=== PATIENT | male | born 1955 | race Caucasian/White ===

== ENCOUNTER → 2018-05-04 09:12 | Outpatient (CLI) | payer OTHER, SELFPAY ==
--- NOTE | 2018-05-04 | DI.US.S_ITS ---
PROCEDURE: US ABDOMEN COMPLETE INDICATIONS: Elevated liver enzymes and positive Hep C TECHNIQUE: Real-time scanning was performed of the abdominal and retroperitoneal organs, with image documentation. COMPARISON: None. FINDINGS: Liver: Liver is normal in size and homogeneous in echotexture. Note is made of a small right hepatic lobe cyst measuring up to 2.2 cm, simple in character. Gallbladder: Normal. Biliary ducts: Intrahepatic bile ducts are non-dilated. Extrahepatic bile duct caliber measures 5.0 mm. Normal is 6-7 mm or less in diameter, or 10 mm or less post-cholecystectomy. Pancreas: Not seen due to bowel gas Spleen: Spleen is slightly above the upper limits of normal in craniocaudad size at 13.4 cm, and homogeneous in echotexture. Kidneys: Kidneys are normal in size and echotexture. Right kidney measures 9.9 cm long; left kidney measures 11.0 cm long. No hydronephrosis bilaterally or right sided nephrolithiasis. There is a set of 2 calculi involving the superior and inferior collecting system of the left kidney, measuring 9 mm above and 10 mm below No solid masses. Aorta: Visualized aorta is normal in caliber at less than 3 cm. Iliacs: Proximal common iliac arteries are normal in caliber at less than 2.5 cm. IVC: Intrahepatic inferior vena cava is patent. Miscellaneous: No free abdominal fluid. IMPRESSION: No hydronephrosis or right-sided nephrolithiasis but to left renal collecting system calculi are nonobstructive in measure up to 1 cm in dimension. No gallstones or biliary distention seen, a source of elevated liver function tests is not found. Dictated by: Del Duncan M.D. on 05/04/2018 at 12:22 Approved by: Del Duncan M.D. on 05/04/2018 at 12:25
== END ==
PROVIDERS: PCP Family Medicine; Visit Provider Family Medicine
DX: N20.0 Calculus of kidney (principal); R94.5 Abnormal results of liver function studies; B19.20 Unspecified viral hepatitis C without hepatic coma
CPT/HCPCS: 76700

== ENCOUNTER → 2023-02-09 08:00 | Outpatient (CLI) | payer OTHER, SELFPAY ==
--- NOTE | 2023-02-09 08:24 | DI.ECHO.S_ITS ---
:Name: EDUAR BLACK Study Date: 02/09/2023 Height: 72 in : :[facility] ReadingLocation: Weight: 235 lb : : Gender: Male BSA: 2.3 m2 : :: 1955 Age: 68 yrs BP: 129/104 mmHg: :Reason For Study: ATRAIL FIBRILLATION : :Ordering Physician: VINNY, : :KAROL Ly Performed By: Rita Anaya : :Referring: KAROL CASILLAS : + + Interpretation Summary The left ventricle is borderline dilated. Left ventricular systolic function is severely reduced. The ejection fraction is estimated to be 25-30%. There is no prior echocardiogram noted for this patient. Diastolic function could not be accurately assessed due to atrial fibrillation. The right ventricle is mildly dilated. The right ventricular systolic function is normal. The right ventricular systolic pressure is estimated to be at least 46 mmHg based on an estimated right atrial pressure of 8 mm Hg. The left atrium is severely dilated. The right atrium is severely dilated. There is moderate mitral regurgitation. There is mild tricuspid regurgitation. The aortic root is normal size. A-fib with mild RVR was present. Procedure: A two-dimensional transthoracic echocardiogram with color flow and Doppler was performed. The study quality was technically adequate. There is no prior echocardiogram noted for this patient. The patient was in atrial fibrillation with heart rates between 92-123 bpm during the exam. Left Ventricle: The left ventricle is borderline dilated. The estimated left ventricular end diastolic volume is 139 ml. Left ventricular systolic function is severely reduced. The ejection fraction is estimated to be 25-30%. Diastolic function could not be accurately assessed due to atrial fibrillation. Right Ventricle: The right ventricle is mildly dilated. The right ventricular systolic function is normal. Atria: The left atrium is severely dilated. The right atrium is severely dilated. There is no Doppler evidence for an interatrial shunt. Mitral Valve: The mitral valve leaflets appear mildly thickened, but open well. There is moderate mitral regurgitation. Aortic Valve: The aortic valve is not well visualized. The aortic valve opens well. There is no aortic valve stenosis. No aortic regurgitation is present. Tricuspid Valve: The tricuspid valve is not well visualized, but is grossly normal. There is mild tricuspid regurgitation. The right ventricular systolic pressure is estimated to be at least 46 mmHg based on an estimated right atrial pressure of 8 mm Hg. Pulmonic Valve: The pulmonic valve is not well seen, but is grossly normal. There is trace pulmonic regurgitation. Great Vessels: The aortic root is normal size. The ascending aorta is at the upper limits of normal in size. The IVC is dilated (diameter is greater than 2.1 cm) yet it collapses greater than 50% with a sniff. This suggests a right atrial pressure of 8 mm Hg. Pericardium/ Pleura There is no pericardial effusion. There is no pleural effusion. MMode/2D Measurements & Calculations LVIDd: 5.8 cm LVOT diam: 2.3 cm LVIDs: 5.3 cm Ao root diam: 3.6 cm FS: 8.9 % asc Aorta Diam: 3.9 cm EPSS: 2.0 cm Ao Arch Diam (Prox Trans): 3.2 cm IVSd: 0.99 cm LVPWd: 0.91 cm LV ellington. diameter/BSA (cm/m^2): 2.6 LV sys. diameter/BSA (cm/m^2): 2.3 LA A2 area: 28.7 cm2 RA long axis: 6.6 cm LA A4 area: 36.8 cm2 RA area: 30.4 cm2 LA length (vol): 7.5 cm RA vol: 118.8 ml LA vol: 120.3 ml RA : 52.1 ml/m2 LA vol index: 52.7 ml/m2 IVC diam: 2.1 cm RVD1 (basal): 4.4 cm RVD2 (mid): 3.0 cm TAPSE: 1.9 cm Doppler Measurements & Calculations Ao V2 max: 91.8 cm/sec LVOT Max Leon: 50.0 cm/sec Ao V2 mean: 71.1 cm/sec LV V1 max P.0 mmHg Ao max P.4 mmHg LV V1 VTI: 8.0 cm Ao mean P.2 mmHg IGNACIA(I,D): 2.4 cm2 Ao V2 VTI: 14.4 cm IGNACIA(V,D): 2.4 cm2 sev ratio: 0.56 IGNACIA indexed to BSA (cm^2/m^2): 1.1 MV E max leon: 90.4 cm/sec TR max leon: 307.0 cm/sec MV A max leon: 1.5 cm/sec TR max P.7 mmHg MV E/A: 59.5 PA V2 max: 80.4 cm/sec Med Peak E' Leon: 6.4 cm/sec PA V2 mean: 53.6 cm/sec E/E' med: 14.1 PA mean P.3 mmHg Lat Peak E' Leon: 11.2 cm/sec PA pr(Accel): 53.3 mmHg E/E' lat: 8.0 E/e' average: 11.1 MV dec time: 0.14 sec MR ERO: 0.19 cm2 MR PISA: 2.9 cm2 SV(LVOT): 34.8 ml MR flow rate: 101.4 cm3/sec MR PISA radius: 0.68 cm Reading Physician:09:54 AM
== END ==
PROVIDERS: PCP Family Medicine; Referring Provider Family Medicine; Visit Provider Family Medicine
DX: I08.1 Rheumatic disorders of both mitral and tricuspid valves (principal); I48.91 Unspecified atrial fibrillation
CPT/HCPCS: 93306

== ENCOUNTER → 2023-02-10 09:29 | Outpatient (CLI) | payer OTHER, SELFPAY ==
--- NOTE | 2023-02-12 16:32 | PM.PFT.1 ---
Pulmonary Function Test Referral & Results Date Patient Seen: 02/10/23 Results: The spirometry demonstrates an FVC of 3.65 L which is 80% of predicted. The FEV1 was measured at 3.11 L which is 92% of predicted. The FEV1/FVC ratio was 85 which is 115% of predicted. Following the administration of bronchodilator there was no appreciable change. Lung volumes show an SVC of 4.34 L which is 93% of predicted. The diffusing capacity was measured at 19.27 which is 59% of predicted. No hemoglobin value was provided, so no correction for potential anemia could be made, if appropriate. The maximum voluntary ventilation was normal Interpretation: This study demonstrates normal spirometry but moderate reduction diffusing capacity suggesting the presence of disease at the capillary alveolar level
== END ==
PROVIDERS: PCP Family Medicine; Referring Provider Family Medicine; Visit Provider Family Medicine
DX: R06.2 Wheezing (principal); Z87.891 Personal history of nicotine dependence; J98.8 Other specified respiratory disorders
CPT/HCPCS: 94060; 94726; 94729

== ENCOUNTER → 2023-05-28 12:56 | Outpatient (CLI) | payer OTHER, SELFPAY ==
--- NOTE | 2023-05-28 | DI.ECHO.S_ITS ---
[facility]---------+ [facility] +---------+ : : [address] [place] : : : : [id number] : : : : Phone: [phone]+ Echocardiogram Report + + :Name: EDUAR BLACK Study Date: 05/28/2023 Height: 71 in : :[facility] ReadingLocation: Weight: 235 lb : : Gender: Male BSA: 2.3 m2 : :: 1955 Age: 68 yrs BP: 155/96 mmHg: :Reason For Study: Chronic Systolic Heart Failure : :Ordering Physician: EDWARDO, : :MINESH Performed By: Gisele Becker : :Referring: MINESH JACKSON : + + Interpretation Summary 1) Normal left ventricular size with mildly reduced systolic function (EF 45- 50%). 2) Normal right ventricular size and function. 3) There is mild aortic stenosis (valve area 1.8cm2, mean gradient 4mmHg). 4) Compared to the Echo done 02/09/2023, LVEF has improved from 25-30% to 45- 50% on this study. Procedure: A two-dimensional transthoracic echocardiogram with color flow and Doppler was performed. The study quality was technically adequate. Comparison is made with the echocardiogram of 02/09/2023. The patient was in a bradycardic rhythm during the exam. Left Ventricle: The left ventricle is normal in size. The ejection fraction is estimated to be 45-50%. Diastolic parameters suggest a relaxation abnormality of the left ventricle, consistent with probable normal filling pressures. Right Ventricle: The right ventricle is normal size. The right ventricular systolic function is normal. Atria: The left atrial size is normal. Right atrial size is normal. There is no Doppler evidence for an interatrial shunt. Mitral Valve: The mitral valve is grossly normal. There is no mitral valve stenosis. There is trace mitral regurgitation. Aortic Valve: The aortic valve is trileaflet. The aortic valve opens well. There is mild aortic valve sclerosis. There is mild aortic stenosis. No aortic regurgitation is present. Tricuspid Valve: The tricuspid valve is normal. There is no tricuspid stenosis. There is trace tricuspid regurgitation. The right ventricular systolic pressure is estimated to be at least 18 mmHg based on an estimated right atrial pressure of 3 mm Hg. Pulmonic Valve: The pulmonic valve is not well visualized. There is no pulmonic valvular stenosis. There is no pulmonic valvular regurgitation. Great Vessels: The aortic root is normal size. The ascending aorta is normal in size. The pulmonary artery is normal size. The IVC is of normal diameter and collapses greater than 50% with a sniff. This suggests a low right atrial pressure of 3 mm Hg. Pericardium/ Pleura There is no pericardial effusion. There is no pleural effusion. MMode/2D Measurements & Calculations LVIDd: 5.4 cm LVOT diam: 2.2 cm LVIDs: 4.6 cm Ao root diam: 3.3 cm FS: 14.8 % asc Aorta Diam: 3.6 cm IVSd: 0.80 cm LVPWd: 1.0 cm LV ellingtno. diameter/BSA (cm/m^2): 2.4 LV sys. diameter/BSA (cm/m^2): 2.0 LA A4 area: 20.7 cm2 RA long axis: 5.7 cm RA area: 16.8 cm2 RA vol: 42.1 ml RA : 18.7 ml/m2 RVD1 (basal): 4.3 cm LVLs ap4: 7.1 cm LVLd ap2: 8.0 cm TAPSE_phl: 2.8 cm LVLs ap2: 7.0 cm Doppler Measurements & Calculations Ao V2 max: 141.0 cm/sec LVOT Max Leon: 65.8 cm/sec Ao V2 mean: 95.0 cm/sec LV V1 max P.7 mmHg Ao max P.0 mmHg LV V1 VTI: 16.4 cm Ao mean P.0 mmHg IGNACIA(I,D): 1.8 cm2 Ao V2 VTI: 32.5 cm IGNACIA(V,D): 1.7 cm2 sev ratio: 0.50 IGNACIA indexed to BSA (cm^2/m^2): 0.82 MV E max leon: 52.4 cm/sec TR max leon: 195.0 cm/sec MV A max leon: 74.7 cm/sec TR max P.2 mmHg MV E/A: 0.70 PA V2 max: 91.0 cm/sec Med Peak E' Leon: 4.4 cm/sec PA V2 mean: 62.7 cm/sec E/E' med: 12.0 PA mean P.0 mmHg Lat Peak E' Leon: 9.4 cm/sec PA pr(Accel): 21.9 mmHg E/E' lat: 5.6 E/e' average: 8.8 MV dec time: 0.42 sec SV(LVOT): 59.9 ml AV VR_phl: 0.47 IGNACIA(VTI)/BSA_phl: 0.63 MV P1/2t-pr_phl: 124.0 msec Reading Physician:05:19 PM
== END ==
PROVIDERS: PCP Family Medicine; Referring Provider Internal Medicine Cardiovascular Disease; Visit Provider Internal Medicine Cardiovascular Disease
DX: I35.8 Other nonrheumatic aortic valve disorders (principal); I35.0 Nonrheumatic aortic (valve) stenosis; I50.22 Chronic systolic (congestive) heart failure
CPT/HCPCS: 93306

== ENCOUNTER → 2025-09-14 12:08 | Outpatient (CLI) | payer OTHER, SELFPAY ==
--- NOTE | 2025-09-14 12:09 | DI.NM.S_ITS ---
PROCEDURE: NM MARYBEL PERF SPECT R&S PHARM Rest and pharmacological stress myocardial perfusion SPECT with gated imaging and ejection fraction RADIOPHARMACEUTICAL: 25.9 mCi Tc-99m tetrafosmin IV at rest and 26.0 mCi Tc-99m tetrafosmin IV at peak effect of pharmacological stress. [id number] was performed. INDICATIONS: Chronic systolic heart failure TECHNIQUE: Radiopharmaceutical was injected at peak stress test, and also at rest. SPECT images were obtained. SPECT myocardial perfusion images were displayed in short axis, horizontal long axis, and vertical long axis views. Gated images were reviewed using Daz 3d software. COMPARISON: None. CARDIAC STRESS: A pharmacologic stress test was performed under the supervision of an attending staff, using an infusion of 0.4 mg regadenoson IV. Hemodynamic data: There is normal blood pressure and heart rate response to pharmacologic stress. Symptoms: The patient denied anginal chest pain. EKG: No diagnostic changes of ischemia; no ectopy. FINDINGS: Raw data: There is good myocardial uptake of radiotracer. No significant motion artifacts. Left ventricle function: Gated images demonstrate normal left ventricular wall thickening. No segmental wall motion abnormalities. No transient ischemic dilation; TID is 1.33 (normal less than 1.3). Left ventricle resting end diastolic volume is 131 mL. Left ventricle stress ejection fraction is 37%; normal range is above 45%. Myocardial perfusion: There is a medium sized, mild intensity fixed inferior wall defect that resolves in prone imaging. No reversible perfusion defects. IMPRESSION: Low risk study for ischemia. No evidence of pharmacologic induced ischemia or scar. Mildly dilated left ventricle based on calculated LVEDV with moderately reduced function. Dictated by: Valeria Whyte D.O. on 09/17/2025 at 16:50 Approved by: Valeria Whyte D.O. on 09/17/2025 at 16:54
== END ==
LOC: NUCM 12:08
PROVIDERS: PCP Family Medicine; Referring Provider Internal Medicine Cardiovascular Disease; Visit Provider Internal Medicine Cardiovascular Disease
DX: I50.22 Chronic systolic (congestive) heart failure (principal)
CPT/HCPCS: 78452; 93017; A9502; J2785